=== PATIENT | female | born 1995 | race African-American/Black ===

== ENCOUNTER 2016-09-06 18:20 | Emergency (ER) | payer SELFPAY ==
[2016-09-06 18:52] VITALS: PULSE 80; TEMP 97.4; BMI 41.2
--- NOTE | 2016-09-06 18:52 | PDOC ---
History of Present Illness - History of Present Illness Initial Comments: 09/06/16 19:34 Patient is a 20 year old female with significant medical hx of asthma, PCOS, and gastric bypass surgery (2013) who is presenting to the ED with back pain and RLQ pain for five days. Patient complains of lower back pain that she describes as a tightness and pressure. She reports constant RLQ pain that she rates 8/10 in severity and describes as a "pulling" feeling. The patient also endorses she's been having some diarrhea. Denies any fever, chills, heavy lifting, recent trauma, nausea, vomiting, dysuria, hematuria, chest pain, or shortness of breath. The patient had a D&C in 11/2016; she also reports one miscarriage. /A1/M1 PMD: Jatin Duran MD Metal Technician: Michi Baron MD <Delaney Smith - Last Filed: 09/06/16 19:34> <Trista Pichardo - Last Filed: 09/06/16 22:14> - General Chief Complaint: Pain, Acute Stated Complaint: LOWER ABD PAIN Time Seen by Provider: 09/06/16 18:37 Past History <Delaney Smith - Last Filed: 09/06/16 19:34> - Past Medical History Asthma: Yes - Surgical History Abdominal Surgery: Yes (gastric bypass 02/2014) - Reproductive History (#): 1 Para: 0 Cervical CA: No Dysfunctional Uterine Bleeding: No Ectopic : No Endometrial CA: No Polycystic Ovaries: No Therapeutic (s) & number: No Tubal Ligation: No Spontaneous : 0 - Psycho/Social/Smoking Cessation Hx Anxiety: No Suicidal Ideation: No Smoking History: Never smoked Have you smoked in the past 12 months: No Information on smoking cessation initiated: No Hx Alcohol Use: No Drug/Substance Use Hx: No Substance Use Type: None <Trista Pichardo - Last Filed: 09/06/16 22:14> - Past Medical History Allergies/Adverse Reactions: Allergies Allergy/AdvReac Type Severity Reaction Status Date / Time No Known Allergies Allergy Verified 09/06/16 18:51 Home Medications: Ambulatory Orders Albuterol Sulfate Inhaler - [Ventolin Hfa Inhaler -] 2 inh PO Q4H 11/22/15 Review of Systems - Review of Systems Comments:: 09/06/16 19:47 CONSTITUTIONAL: Absent: fever, chills, diaphoresis, generalized weakness, malaise, loss of appetite HEENT: Absent: rhinorrhea, nasal congestion, throat pain, throat swelling, difficulty swallowing, mouth swelling, ear pain, eye pain, visual changes CARDIOVASCULAR: Absent: chest pain, syncope, palpitations, irregular heart rate, lightheadedness , peripheral edema RESPIRATORY: Absent: cough, shortness of breath, dyspnea with exertion, orthopnea, wheezing, stridor, hemoptysis GASTROINTESTINAL: Present: RLQ pain Absent: abdominal distension, nausea, vomiting, diarrhea, constipation, melena, hematochezia GENITOURINARY: Absent: dysuria, frequency, urgency, hesitancy, hematuria, flank pain, genital pain MUSCULOSKELETAL: Present: back pain Absent: myalgia, arthralgia, joint swelling SKIN: Absent: rash, itching, pallor HEMATOLOGIC/IMMUNOLOGIC: Absent: easy bleeding, easy bruising, lymphadenopathy, frequent infections ENDOCRINE: Absent: unexplained weight gain, unexplained weight loss, heat intolerance, cold intolerance NEUROLOGIC: Absent: headache, focal weakness or paresthesia, dizziness, unsteady gait, seizure, mental status changes, bladder or bowel incontinence. PSYCHIATRIC: Absent: anxiety, depression, suicidal or homicidal ideation, hallucinations <Delaney Smith - Last Filed: 09/06/16 19:34> *Physical Exam - Vital Signs Last Vital Signs Temp Pulse Resp BP Pulse Ox 97.4 F L 80 18 140/90 100 09/06/16 18:30 09/06/16 18:30 09/06/16 18:30 09/06/16 18:30 09/06/16 18:30 - Physical Exam Comments: 09/06/16 19:50 GENERAL: Obese. Awake and alert. No acute distress. HEENT: Normocephalic, atraumatic. PERRLA, EOMI. No conjunctival pallor. Sclera are non- icteric. Moist mucous membranes. Oropharynx is clear. NECK: Supple. Full ROM. No JVD. Carotid pulses 2+ and symmetric, without bruits. No thyromegaly. No lymphadenopathy. CARDIOVASCULAR: Regular rate and rhythm. No murmurs, rubs, or gallops. Distal pulses are 2+ and symmetric. PULMONARY: No evidence of respiratory distress. Lungs clear to auscultation bilaterally. No wheezing, rales or rhonchi. ABDOMINAL: Soft. Right pelvic tenderness. Non-distended. No rebound or guarding. No organomegaly. Normoactive bowel sounds. MUSCULOSKELETAL: Lumbar tenderness. Normal range of motion at all joints. No bony deformities. No CVA tenderness. EXTREMITIES: No cyanosis. No clubbing. No edema. No calf tenderness. SKIN: Warm and dry. Normal capillary refill. No rashes. No jaundice. NEUROLOGICAL: Alert, awake, appropriate. Cranial nerves 2-12 intact. Normal speech. Gait is normal without ataxia. PSYCHIATRIC: Cooperative. Good eye contact. Appropriate mood and affect. <Delaney Smith - Last Filed: 09/06/16 19:34> - Vital Signs Last Vital Signs Temp Pulse Resp BP Pulse Ox 97.4 F L 80 18 140/90 100 09/06/16 18:30 09/06/16 18:30 09/06/16 18:30 09/06/16 18:30 09/06/16 18:30 <Trista Pichardo - Last Filed: 09/06/16 22:14> ED Treatment Course - ADDITIONAL ORDERS Additional order review: Laboratory Results 09/06/16 09/06/16 19:04 19:04 Urine Color Ltyellow Urine Appearance Clear Urine pH 6.0 Ur Specific [place] 1.027 Urine Protein Negative Urine Glucose (UA) Negative Urine Ketones Negative Urine Blood Negative Urine Nitrite Negative Urine Bilirubin Negative Urine Urobilinogen 2.0 e.u/dl H Ur Leukocyte Esterase Trace H Urine HCG, Qual Negative <Delaney Smith - Last Filed: 09/06/16 19:34> - LABORATORY CBC & Chemistry Diagram: 09/06/16 20:00 09/06/16 20:02 <Trista Pichardo - Last Filed: 09/06/16 22:14> *DC/Admit/Observation/Transfer - Attestations Scribe Attestion: 09/06/16 19:51 Documentation prepared by Delaney Smtih, acting as medical advisor for Trista Pichardo MD. <Delaney Smith - Last Filed: 09/06/16 19:34> <Trista Pichardo - Last Filed: 09/06/16 22:14> Diagnosis at time of Disposition: Complex cyst of right ovary - Discharge Dispostion Disposition: HOME Condition at time of disposition: Stable - Referrals Referrals: Jatin Duran MD [Primary Care Provider] - - Patient Instructions Printed Discharge Instructions: DI for Ovarian Cyst Additional Instructions: please follow up with your field service technician poultry
[2016-09-06 19:25] LABS: URINE APPEARANCE CLEAR; URINE BILIRUBIN NEGATIVE (NEGATIVE); URINE BLOOD NEGATIVE (NEGATIVE); URINE COLOR LTYELLOW; URINE GLUCOSE (UA) NEGATIVE (NEGATIVE); URINE KETONE NEGATIVE (NEGATIVE); URINE NITRITE NEGATIVE (NEGATIVE); URINE PROTEIN NEGATIVE (NEGATIVE); URINE UROBILINOGEN 2.0 E.U/dl E.U./dl (0.2-1.0)
[2016-09-06 19:27] LABS: URINE LEUK ESTERASE TRACE (NEGATIVE)
[2016-09-06 19:45] LABS: URINE BACTERIA RARE /hpf (NONE SEEN); URINE MUCUS RARE; URINE RBC 1 /hpf (0-3); URINE WBC 5 /hpf (3-5)
[2016-09-06] MEDS ORDERED: KETOROLAC TROMETHAMINE 30 MG/1 ML VIAL ONE (19:54)
[2016-09-06] MEDS ORDERED: KETOROLAC TROMETHAMINE 30 MG/1 ML VIAL IVPUSH ONE (20:00)
[2016-09-06 20:08] LABS: BASOPHIL 0.9 % (0-2.0); MCH 27.4 pg (25.7-33.7); MCHC 33.6 g/dl (32.0-36.0); MEAN CELL VOLUME 81.6 fl (80-96); MEAN PLT VOLUME 7.1 fl (7.5-11.1); NEUTROPHILS 54.4 % (42.8-82.8); PLATELET COUNT 269 K/MM3 (134-434); RDW 12.8 % (11.6-15.6); WHITE BLOOD COUNT 8.8 K/mm3 (4.0-10.0)
[2016-09-06 20:45] LABS: ALBUMIN 3.5 g/dl (3.4-5.0); ANION GAP 7 (8-16); CALCIUM 8.3 mg/dL (8.5-10.1); CO2 26 mmol/L (21-32); CREATININE 0.6 mg/dL (0.55-1.02); GLUCOSE,RANDOM 75 mg/dL (74-106); SGOT/AST 17 U/L (15-37); SGPT/ALT 26 U/L (12-78)
[2016-09-06 20:47] LABS: ALK PHOS 93 U/L (45-117); BILIRUBIN,TOTAL 0.2 mg/dL (0.2-1.0); TOT PROT 7.6 g/dl (6.4-8.2)
[2016-09-06 22:16] VITALS: BP 128/78
== END 2016-09-06 22:16 | disposition home or self-care (01) ==
LOC: JER 18:20
PROC: 3E0333Z Introduction of Anti-inflammatory into Peripheral Vein, Percutaneous Approach (ICD-10-PCS; principal; 2016-09-06)
DX: N83.291 Other ovarian cyst, right side (principal); E28.2 Polycystic ovarian syndrome; J45.909 Unspecified asthma, uncomplicated; Z98.84 Bariatric surgery status
CPT/HCPCS: 36415; 76830-TC; 80053; 81003; 81015; 84703; 85025; 99283-25

== ENCOUNTER 2016-09-16 20:35 | Emergency (ER) | payer SELFPAY ==
[2016-09-16 20:42] VITALS: TEMP 101.6; BMI 40.7
[2016-09-16] MEDS ORDERED: IBUPROFEN 400 MG TABLET (FP) PO ONE ×2 (21:12→21:13)
--- NOTE | 2016-09-16 21:12 | PDOC ---
History of Present Illness - General Chief Complaint: Pain Stated Complaint: BODY PAIN Time Seen by Provider: 09/16/16 20:45 History Source: Patient Exam Limitations: No Limitations - History of Present Illness Timing/Duration: 4-6 hours Severity: mild Associated Symptoms: reports: cough, fever/chills, shortness of breath. denies : chest pain, loss of appetite, nausea/vomiting, syncope, weakness Past History - Travel Traveled outside of the country in the last 30 days: No Close contact w/someone who was outside of country & ill: No - Past Medical History Allergies/Adverse Reactions: Allergies Allergy/AdvReac Type Severity Reaction Status Date / Time ibuprofen [From Motrin] AdvReac Verified 09/16/16 22:58 Home Medications: Ambulatory Orders Albuterol Sulfate Inhaler - [Ventolin Hfa Inhaler -] 2 inh PO Q4H 11/22/15 Asthma: Yes - Surgical History Abdominal Surgery: Yes (gastric bypass 02/2014) - Reproductive History (#): 1 Para: 0 Cervical CA: No Dysfunctional Uterine Bleeding: No Ectopic : No Endometrial CA: No Polycystic Ovaries: No Therapeutic (s) & number: No Tubal Ligation: No Spontaneous : 0 - Psycho/Social/Smoking Cessation Hx Anxiety: No Suicidal Ideation: No Smoking History: Never smoked Have you smoked in the past 12 months: No Hx Alcohol Use: No Drug/Substance Use Hx: No Substance Use Type: None Review of Systems - Review of Systems Able to Perform ROS?: Yes Comments:: 09/16/16 21:54 CONSTITUTIONAL: +fever, chills Absent: diaphoresis, generalized weakness, malaise, loss of appetite HEENT: Absent: rhinorrhea, nasal congestion, throat pain, throat swelling, difficulty swallowing, mouth swelling, ear pain, eye pain, visual Changes CARDIOVASCULAR: Absent: chest pain, loss of consciousness, palpitations, irregular heart rate, peripheral edema RESPIRATORY: +shortness of breath, cough Absent: dyspnea with exertion, orthopnea, wheezing, stridor, hemoptysis GASTROINTESTINAL: Absent: abdominal pain, abdominal distension, nausea, vomiting, diarrhea, constipation, melena, hematochezia GENITOURINARY: Absent: dysuria, frequency, urgency, hesitancy, hematuria, flank pain, genital pain MUSCULOSKELETAL: Absent: myalgia, arthralgia, joint swelling SKIN: Absent: rash, itching, pallor HEMATOLOGIC/IMMUNOLOGIC: Absent: easy bleeding, easy bruising, lymphadenopathy, frequent infections ENDOCRINE: Absent: unexplained weight gain, unexplained weight loss, heat intolerance, cold intolerance NEUROLOGIC: Absent: headache, focal weakness or paresthesias, dizziness, unsteady gait, seizure, mental status changes, bladder or bowel incontinence PSYCHIATRIC: Absent: anxiety, depression, suicidal or homicidal ideation, hallucinations. 09/16/16 21:55 Is the patient limited French proficient: No *Physical Exam - Vital Signs Last Vital Signs Temp Pulse Resp BP Pulse Ox 101.6 F H 117 H 20 113/41 94 L 09/16/16 20:40 09/16/16 20:40 09/16/16 20:40 09/16/16 20:40 09/16/16 20:40 - Physical Exam Comments: 09/16/16 21:55 GENERAL: Well developed, well nourished. Awake and alert. No acute distress. HEENT: Normocephalic, atraumatic. PERRLA, EOMI. No conjunctival pallor. Sclera are non- icteric. Moist mucous membranes. Oropharynx is clear. NECK: Supple. Full ROM. No JVD. Carotid pulses 2+ and symmetric, without bruits. No thyromegaly. No lymphadenopathy. CARDIOVASCULAR: Regular rate and rhythm. No murmurs, rubs, or gallops. Distal pulses are 2+ and symmetric. PULMONARY: +diffuse exp wheezing No evidence of respiratory distress. No wheezing, rales or rhonchi. ABDOMINAL: Soft. Non-tender. Non-distended. No rebound or guarding. No organomegaly. Normoactive bowel sounds. MUSCULOSKELETAL Normal range of motion at all joints. No bony deformities or tenderness. No CVA tenderness. EXTREMITIES: No cyanosis. No clubbing. No edema. No calf tenderness. SKIN: Warm and dry. Normal capillary refill. No rashes. No jaundice. NEUROLOGICAL: Alert, awake, appropriate. Cranial nerves 2-12 intact. No deficits to light touch and temperature in face, upper extremities and lower extremities. No motor deficits in the in face, upper extremities and lower extremities. Normoreflexic in the upper and lower extremities. Normal speech. Toes are down- going bilaterally. Gait is normal without ataxia. PSYCHIATRIC: Cooperative. Good eye contact. Appropriate mood and affect. ED Treatment Course - LABORATORY CBC & Chemistry Diagram: 09/16/16 21:33 09/16/16 21:33 - RADIOLOGY Radiograph Interpretation: 09/17/16 00:18 CXR 2v NAD *DC/Admit/Observation/Transfer Diagnosis at time of Disposition: Fever Qualifiers: Fever type: unspecified Qualified Code(s): R50.9 - Fever, unspecified Asthma Qualifiers: Asthma severity: mild intermittent Asthma complication type: uncomplicated Qualified Code(s): J45.20 - Mild intermittent asthma, uncomplicated - Discharge Dispostion Disposition: HOME Condition at time of disposition: Stable - Referrals Referrals: Jatin Duran MD [Primary Care Provider] - - Patient Instructions Printed Discharge Instructions: DI for Fever (Symptom) -- Adult, Asthma -- Adult Additional Instructions: Increase fluids Rest Follow-up with your primary medical physician Tylenol alternating with Motrin for fever Return back to the emergency department for severe/persistent or worsening symptoms. Progress Note - Progress Note Progress Note: 20-year-old female W/Pmhx of asthma presents to the emergency department with her complaining of subjective fever and chills, malaise, shortness of breath 5 hours. Patient denies any headache, dizziness, lightheadedness, visual disturbance, neck pain, chest pain, abdominal pains, urinary symptoms. Patient states she was never admitted no wish she ever intubated due to asthma. 2301hrs: Lung sounds: Clear throughout lung morel/auscultation Patient says she feels 99.9% better and wishes to be discharged. Patient's states she will watch her this evening and will return back to the emergency department for any recurrent symptoms.
[2016-09-16] MEDS ORDERED: ALBUTEROL SO4 2.5/IPRATROPIUM 0.5 INH SOL 3 ML VIAL.NEB. NEB ONE ×2 (21:13→21:31)
[2016-09-16] MEDS ORDERED: SODIUM CHLORIDE 1,000 ML IV STA (21:13)
[2016-09-16] MEDS ORDERED: methylPREDNISolone NA SUCC 125 MG/2 ML VIAL ONE (21:13)
[2016-09-16] MEDS ORDERED: ACETAMINOPHEN 500 MG TABLET (FP) PO ONE (21:32)
[2016-09-16] MEDS ORDERED: ACETAMINOPHEN 325 MG TABLET (FP) ONE (21:35)
[2016-09-16] MEDS ORDERED: MAGNESIUM SULF 50% (8.12 MEQ/2 ML-1 GM VIAL) IVPB ONE (21:46)
[2016-09-16] MEDS ORDERED: MAGNESIUM SULF 50% (8.12 MEQ/2 ML-1 GM VIAL) ONE (21:47)
--- NOTE | 2016-09-16 21:47 | PDOC ---
[id number] 113/41 94 L 09/16/16 20:40 09/16/16 20:40 09/16/16 20:40 09/16/16 20:40 09/16/16 20:40 ED Treatment Course - LABORATORY CBC & Chemistry Diagram: 09/16/16 21:33 09/16/16 21:33 - ADDITIONAL ORDERS Additional order review: 09/16/16 20:45 Influenza Types A,B Antigen (RICCI) - Final Nasopharyngeal Swab - Final - Medications Given in the ED: ED Medications Discontinued Medications Generic Name Dose Route Start Last Admin Trade Name Emily PRN Reason Stop Dose Admin Acetaminophen 975 mg 09/16/16 21:32 09/16/16 21:41 Tylenol - PO 09/16/16 21:33 975 mg ONCE ONE Administration Albuterol/Ipratropium 1 amp 09/16/16 21:31 09/16/16 21:40 Duoneb - NEB 09/16/16 21:32 1 amp ONCE ONE Administration Ibuprofen 800 mg 09/16/16 21:12 09/16/16 21:41 Motrin - PO 09/16/16 21:13 Not Given ONCE ONE Medical Decision Making - Medical Decision Making 09/16/16 21:47 agree with care from JIAN Sweet. *DC/Admit/Observation/Transfer Diagnosis at time of Disposition: Fever, Asthma - Discharge Dispostion Disposition: HOME Condition at time of disposition: Stable - Referrals Referrals: Jatin Duran MD [Primary Care Provider] - - Patient Instructions Printed Discharge Instructions: Asthma -- Adult, DI for Fever (Symptom) -- Adult Additional Instructions: Increase fluids Rest Follow-up with your primary medical physician Tylenol alternating with Motrin for fever Return back to the emergency department for severe/persistent or worsening symptoms.
[2016-09-16 21:52] LABS: BASOPHIL 0.4 % (0-2.0); EOSINOPHIL 0.2 % (0-4.5); MCH 27.1 pg (25.7-33.7); MCHC 33.3 g/dl (32.0-36.0); MEAN CELL VOLUME 81.5 fl (80-96); MEAN PLT VOLUME 7.8 fl (7.5-11.1); NEUTROPHILS 85.2 % (42.8-82.8); PLATELET COUNT 244 K/MM3 (134-434); RDW 12.8 % (11.6-15.6); WHITE BLOOD COUNT 9.4 K/mm3 (4.0-10.0)
[2016-09-16 21:53] VITALS: BP 102/72; PULSE 130
[2016-09-16 22:31] LABS: ALBUMIN 3.5 g/dl (3.4-5.0); ANION GAP 12 (8-16); CALCIUM 8.3 mg/dL (8.5-10.1); CO2 22 mmol/L (21-32); CREATININE 0.8 mg/dL (0.55-1.02); GLUCOSE,RANDOM 101 mg/dL (74-106); SGOT/AST 17 U/L (15-37); SGPT/ALT 20 U/L (12-78)
[2016-09-16 22:33] LABS: ALK PHOS 94 U/L (45-117); BILIRUBIN,TOTAL 0.6 mg/dL (0.2-1.0); TOT PROT 7.8 g/dl (6.4-8.2)
[2016-09-17 00:10] LABS: URINE APPEARANCE CLEAR; URINE BILIRUBIN NEGATIVE (NEGATIVE); URINE COLOR LTYELLOW; URINE GLUCOSE (UA) NEGATIVE (NEGATIVE); URINE KETONE NEGATIVE (NEGATIVE); URINE LEUK ESTERASE NEGATIVE (NEGATIVE); URINE NITRITE NEGATIVE (NEGATIVE); URINE PROTEIN NEGATIVE (NEGATIVE); URINE UROBILINOGEN NEGATIVE E.U./dl (0.2-1.0)
[2016-09-17 00:26] LABS: URINE BLOOD 3+ (NEGATIVE)
[2016-09-17 00:30] LABS: URINE BACTERIA RARE /hpf (NONE SEEN); URINE HYALINE CAST 2 /lpf; URINE MUCUS FEW; URINE RBC 3 /hpf (0-3); URINE WBC 3 /hpf (3-5)
== END 2016-09-17 00:32 | disposition home or self-care (01) ==
LOC: JER 20:35
PROC: 3E0F7GC Introduction of Other Therapeutic Substance into Respiratory Tract, Via Natural or Artificial Opening (ICD-10-PCS; principal; 2016-09-16)
PROC: 3E0337Z Introduction of Electrolytic and Water Balance Substance into Peripheral Vein, Percutaneous Approach (ICD-10-PCS; 2016-09-16)
PROC: 3E033GC Introduction of Other Therapeutic Substance into Peripheral Vein, Percutaneous Approach (ICD-10-PCS; 2016-09-16)
DX: J45.20 Mild intermittent asthma, uncomplicated (principal); R50.81 Fever presenting with conditions classified elsewhere
CPT/HCPCS: 36415; 71020-TC; 80053; 81003; 81015; 84703; 85025; 87804; 99285-25

== ENCOUNTER 2018-08-09 02:13 | Emergency (ER) | payer OTHER ==
--- NOTE | 2018-08-09 03:25 | PDOC ---
Attending Attestation - Resident Resident Name: Marino Fraire - ED Attending Attestation I have performed the following: I have examined & evaluated the patient, The case was reviewed & discussed with the resident, I agree w/resident's findings & plan - HPI HPI: 08/09/18 03:34 22-year-old female complaining of tingling to bilateral upper extremities. There is no associated fever trauma or deformity. She denies rash. 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 Patient incidentally noted she's been a little weaker than usual and has a history of anemia. There is no associated chest pain back pain nausea vomiting fever or urinary symptoms. She denies headache or focal weakness. - Physicial Exam PE: 08/09/18 03:35 Agree with resident's exam - Medical Decision Making 08/09/18 03:35 22-year-old female with bilateral upper extremity weakness with exam consistent with carpal tunnel syndrome Plan for labs to rule out acute anemia and likely discharge home with outpatient follow-up
[2018-08-09 03:36] VITALS: BMI 50.8
--- NOTE | 2018-08-09 03:40 | PDOC ---
History of Present Illness - General Chief Complaint: Lightheaded Stated Complaint: ARM NUMBNESS/DIZZINESS Time Seen by Provider: 08/09/18 03:24 History Source: Patient Exam Limitations: No Limitations - History of Present Illness Initial Comments: 08/09/18 03:35 Patient is a 22F with history of anemia, pcos, gastric bypass surgery here today complaining of three days of weakness and tingling in both hands. Patient states that she became worried today that she was having a stroke because she couldn't hold her baby. Patient also states that she's felt weak lately with pre -syncopal symptoms over the past several weeks. Patient states that she was found to be very anemic after the of her child, but never followed up. Denies fevers, chills, nausea, vomiting, shortness of breath, chest pain, headache. Past History - Past Medical History Allergies/Adverse Reactions: Allergies Allergy/AdvReac Type Severity Reaction Status Date / Time ibuprofen [From Motrin] AdvReac Verified 08/09/18 03:35 Home Medications: Ambulatory Orders Albuterol Sulfate Inhaler - [Ventolin Hfa Inhaler -] 2 inh PO Q4H 11/22/15 Asthma: Yes - Surgical History Abdominal Surgery: Yes (gastric bypass 02/2014) - Reproductive History (#): 1 Para: 0 Cervical CA: No Dysfunctional Uterine Bleeding: No Ectopic : No Endometrial CA: No Polycystic Ovaries: No Therapeutic (s) & number: No Tubal Ligation: No Spontaneous : 0 - Suicide/Smoking/Psychosocial Hx Smoking History: Never smoked Have you smoked in the past 12 months: No Hx Alcohol Use: No Drug/Substance Use Hx: No Substance Use Type: None Review of Systems - Review of Systems Comments:: 08/09/18 03:38 GENERAL/CONSTITUTIONAL: No fever or chills. No weakness. HEAD, EYES, EARS, NOSE AND THROAT: No change in vision. No sore throat. CARDIOVASCULAR: No chest pain or shortness of breath RESPIRATORY: No cough, wheezing, or hemoptysis. GASTROINTESTINAL: No nausea, vomiting, diarrhea or constipation. GENITOURINARY: No dysuria, frequency, or change in urination. MUSCULOSKELETAL: No joint or muscle swelling or pain. No neck or back pain. SKIN: No rash NEUROLOGIC: No headache, vertigo, loss of consciousness, +weakness and tingling sensation in hands ENDOCRINE: No increased thirst. No abnormal weight change HEMATOLOGIC/LYMPHATIC: No anemia, easy bleeding, or history of blood clots. ALLERGIC/IMMUNOLOGIC: No hives or skin allergy. *Physical Exam - Physical Exam Comments: 08/09/18 03:40 GENERAL: Awake, alert, and fully oriented, in no acute distress HEAD: No signs of trauma, normocephalic, atraumatic EYES: PERRLA, EOMI, sclera anicteric, conjunctiva clear ENT: Auricles normal inspection, hearing grossly normal, nares patent, oropharynx clear without exudates. Moist mucosa NECK: Normal ROM, supple, no lymphadenopathy, JVD, or masses LUNGS: No distress, speaks full sentences, clear to auscultation bilaterally HEART: Regular rate and rhythm, normal S1 and S2, no murmurs, rubs or gallops, peripheral pulses normal and equal bilaterally. ABDOMEN: Soft, nontender, normoactive bowel sounds. No guarding, no rebound. No masses EXTREMITIES: Normal inspection, Normal range of motion, no edema. No clubbing or cyanosis. NEUROLOGICAL: Cranial nerves II through XII grossly intact. Normal speech, normal gait, +tinel sign bilaterally SKIN: Warm, Dry, normal turgor, no rashes or lesions noted. ED Treatment Course - LABORATORY CBC & Chemistry Diagram: 08/09/18 03:50 08/09/18 03:50 Medical Decision Making - Medical Decision Making 08/09/18 03:40 Patient is 22F with history of gastric bypass, anemia, pcos here today with tingling to hands and weakness/pre-syncope. Vitals normal and stable. Patient's hand tingling is consistent with carpal tunnel. Given history of anemia, and gastric surgery, will also evaluate for anemia and . 08/09/18 04:43 CBC 8.7. BMP normal. Preg negative. 08/09/18 06:11 Patient complaining of back pain that isn't reproducible, given neuro symptoms will do cta chest to rule out dissection. *DC/Admit/Observation/Transfer Diagnosis at time of Disposition: Carpal tunnel syndrome, bilateral Anemia Qualifiers: Anemia type: unspecified type Qualified Code(s): D64.9 - Anemia, unspecified - Discharge Dispostion Disposition: HOME Condition at time of disposition: Good Decision to Admit order: No - Referrals Referrals: Jatin Duran MD [Primary Care Provider] - - Patient Instructions Printed Discharge Instructions: Anemia, DI for Carpal Tunnel Syndrome Additional Instructions: Please follow up with your primary care doctor regarding your anemia. Please return if you have any new, worsening or concerning symptoms, especially chest pain, shortness of breath and weakness. - Post Discharge Activity
[2018-08-09 04:03] LABS: BASO % 0.7 % (0-2.0); HEMOGLOBIN 8.7 GM/dL (10.7-15.3); LYMPH % 42.8 % (8-40); MCH 21.2 pg (25.7-33.7); MEAN CELL VOLUME 68.3 fl (80-96); MONO % 6.5 % (3.8-10.2); PLATELET COUNT 395 K/MM3 (134-434); RDW 16.6 % (11.6-15.6)
[2018-08-09 04:26] LABS: ANION GAP 6 MMOL/L (8-16); BLOOD UREA NITROGEN 9 mg/dL (7-18); CALCIUM 8.6 mg/dL (8.5-10.1); CHLORIDE 108 mmol/L (98-107); CO2 26 mmol/L (21-32); CREATININE 0.6 mg/dL (0.55-1.3); GLUCOSE,RANDOM 68 mg/dL (74-106); POTASSIUM 4.1 mmol/L (3.5-5.1); SODIUM 140 mmol/L (136-145)
[2018-08-09 07:31] VITALS: BP 100/70; PULSE 64; TEMP 98.4
--- NOTE | 2018-08-09 08:04 | PDOC ---
*Physical Exam - Vital Signs Last Vital Signs Temp Pulse Resp BP Pulse Ox 98.4 F 64 18 100/70 100 08/09/18 07:29 08/09/18 07:29 08/09/18 07:29 08/09/18 07:29 08/09/18 07:29 - Physical Exam Comments: 08/09/18 08:02 Patient endorsed to me by Dr. porter. Patient's a 22-year-old female who presented with bilateral hand and wrist pain/paresthesias as well as nonspecific chest/back discomfort. Patient underwent a CTA of chest which showed no evidence of PE/dissection. Wrist/hand pains likely related to patient' s occupation and may be related to carpal tunnel syndrome. Patient advised to follow-up with PMD for possible referral to a hand specialist. Patient expressed understanding. Will discharge. ED Treatment Course - LABORATORY CBC & Chemistry Diagram: 08/09/18 03:50 08/09/18 03:50 - ADDITIONAL ORDERS Additional order review: Laboratory Results 08/09/18 08/09/18 03:50 03:50 Sodium 140 Potassium 4.1 Chloride 108 H Carbon Dioxide 26 Anion Gap 6 L BUN 9 Creatinine 0.6 Creat Clearance w eGFR > 60 Random Glucose 68 L Calcium 8.6 Serum , Qual Negative 08/09/18 03:50 RBC 4.10 MCV 68.3 L MCHC 31.0 L RDW 16.6 H MPV 7.0 L D Neutrophils % 48.0 D Lymphocytes % 42.8 H D Monocytes % 6.5 Eosinophils % 2.0 D Basophils % 0.7 *DC/Admit/Observation/Transfer Diagnosis at time of Disposition: Carpal tunnel syndrome, bilateral Anemia Qualifiers: Anemia type: unspecified type Qualified Code(s): D64.9 - Anemia, unspecified - Discharge Dispostion Disposition: HOME Condition at time of disposition: Good - Referrals Referrals: Jatin Duran MD [Primary Care Provider] - - Patient Instructions Printed Discharge Instructions: Anemia, DI for Carpal Tunnel Syndrome Additional Instructions: Please follow up with your primary care doctor regarding your anemia. Please return if you have any new, worsening or concerning symptoms, especially chest pain, shortness of breath and weakness. - Post Discharge Activity
[2018-08-09 10:09] LABS: ACANTHOCYTES 1+; ANISOCYTOSIS 2+; MACROCYTOSIS 0; OVALOCYTE 1+; PLATELET ESTIMATE NORMAL; TEAR DROP CELLS 1+
--- NOTE | 2018-08-09 14:56 | EKG ---
Test Reason : Blood Pressure : / mmHG Vent. Rate : 052 BPM Atrial Rate : 052 BPM P-R Int : 182 ms QRS Dur : 086 ms QT Int : 436 ms P-R-T Axes : 023 022 024 degrees QTc Int : 405 ms SINUS BRADYCARDIA WITH SINUS ARRHYTHMIA OTHERWISE NORMAL ECG NO PREVIOUS ECGS AVAILABLE Confirmed by TIP TOBIAS, JEFFERY ([id number]) on 08/09/2018 2:56:32 PM Referred By: Confirmed By:JEFFERY WHELAN MD
== END 2018-08-09 08:15 | disposition home or self-care (01) ==
LOC: JER 02:13
DX: D64.9 Anemia, unspecified (principal); G56.03 Carpal tunnel syndrome, bilateral upper limbs; Z98.84 Bariatric surgery status
CPT/HCPCS: 36415; 71275-TC; 80048; 84703; 85025; 93005; 93010; 99283-25

== ENCOUNTER 2022-10-30 04:58 | Emergency (ER) | payer OTHER ==
[2022-10-30 05:06] VITALS: BP 102/67; PULSE 80; RESP 18; TEMP 97.7; BMI 43.2
[2022-10-30] MEDS ORDERED: ACETAMINOPHEN 500 MG TABLET (FP) PO ONE (05:33)
[2022-10-30] MEDS ORDERED: METHOCARBAMOL 500 MG TABLET PO ONE (05:33)
[2022-10-30] MEDS ORDERED: ACETAMINOPHEN 325 MG TABLET (FP) ONE (05:40)
[2022-10-30] MEDS ORDERED: METHOCARBAMOL 500 MG TABLET ONE (05:40)
[2022-10-30 06:52] LABS: EPI CELLS 10 /uL (0-25.1); HYALINE CASTS 1 /uL (0-3.1); URINE APPEARANCE CLEAR; URINE BACTERIA 310 /uL (0-1359); URINE BILIRUBIN NEGATIVE (NEGATIVE); URINE COLOR YELLOW; URINE GLUCOSE (UA) NEGATIVE (NEGATIVE); URINE KETONE TRACE (NEGATIVE); URINE LEUK ESTERASE TRACE (NEGATIVE); URINE NITRITE NEGATIVE (NEGATIVE); URINE PROTEIN TRACE (NEGATIVE); URINE WBC 21 /uL (0-25.8)
[2022-10-30 08:33] LABS: URINE RBC 69.4 /uL (0-23.9)
== END 2022-10-30 06:46 | disposition home or self-care (01) ==
LOC: JER 04:58
DX: M54.2 Cervicalgia (principal); R10.9 Unspecified abdominal pain; V87.7XXA Person injured in collision between other specified motor vehicles (traffic), initial encounter
CPT/HCPCS: 81003; 99283-25

== ENCOUNTER 2023-10-25 20:26 | Emergency (ER) | payer OTHER ==
[2023-10-25 20:40] VITALS: BP 105/58; PULSE 55; RESP 18; TEMP 98; BMI 36.6
[2023-10-25] MEDS ORDERED: ACETAMINOPHEN 500 MG TABLET (FP) ONE (21:45)
[2023-10-25] MEDS: ACETAMINOPHEN 500 MG TABLET (FP) PO ONE (21:47)
== END 2023-10-25 21:47 | disposition home or self-care (01) ==
LOC: JERFT 20:26
DX: M25.522 Pain in left elbow (principal); M79.632 Pain in left forearm; W18.2XXA Fall in (into) shower or empty bathtub, initial encounter
CPT/HCPCS: 73070-TC-LT-FY; 99283-25

== ENCOUNTER 2023-11-08 15:38 | Inpatient (IN) | payer OTHER ==
[2023-11-08] MEDS ORDERED: ALBUTEROL SO4 2.5/IPRATROPIUM 0.5 INH SOL 3 ML VIAL.NEB. NEB ONE (16:11)
[2023-11-08] MEDS ORDERED: EPINEPHrine/PF 1 MG/1 ML (1:1,000) AMPULE ONE (16:42)
[2023-11-08] MEDS ORDERED: DEXAMETHASONE SOD PHOSPHATE 10 MG/1 ML VIAL ONE (16:43)
[2023-11-08] MEDS: EPINEPHrine 1:1,000 1,000 MCG/ML ML SQ ONE (16:47)
[2023-11-08] MEDS: DEXAMETHASONE SOD PHOSPHATE 10 MG/1 ML VIAL IM ONE (16:50)
[2023-11-08] MEDS: methylPREDNISolone NA SUCC 125 MG/2 ML VIAL IVPUSH ONE (16:51)
[2023-11-08] MEDS ORDERED: MAGNESIUM SULFATE IN WATER 2 GM/50 ML IVPB IVPB ONE (16:51)
[2023-11-08] MEDS: DEXAMETHASONE 4 MG TABLET (FP) PO ONE (16:51)
[2023-11-08] MEDS: MAGNESIUM SULFATE IN WATER 2 GM/50 ML IVPB IVPB ONE (16:56)
[2023-11-08] MEDS ORDERED: ACETAMINOPHEN INJECTION 100 ML IVPB ONE ×2 (17:07→20:39)
[2023-11-08] MEDS: ACETAMINOPHEN 1000 MG/100 ML BAG IVPB ONE (17:10)
[2023-11-08 17:12] LABS: BASO % 0.5 % (0-2.0); EOS % 0.4 % (0-4.5); HEMATOCRIT 21.8 % (32.4-45.2); LYMPH % 8.8 % (8-40); MCHC 28.5 g/dl (32.0-36.0); MEAN CELL VOLUME 62.3 fl (80-96); MEAN PLT VOLUME 6.6 fl (7.5-11.1); MONO % 2.7 % (3.8-10.2); NEUT % 87.6 % (42.8-82.8); RDW 21.1 % (11.6-15.6); WHITE BLOOD COUNT 21.9 K/mm3 (4.0-10.0)
[2023-11-08 17:18] LABS: MCH 17.8 pg (25.7-33.7)
[2023-11-08 17:19] LABS: PLATELET COUNT 1547 10^3/uL (134-434)
[2023-11-08 17:20] LABS: HEMOGLOBIN 6.2 GM/dL (10.7-15.3)
[2023-11-08 17:25] LABS: ACTIVATED PTT 28.3 SECONDS (25.2-36.5); INR 1.3 (0.83-1.09); PROTHROMBIN TIME (PATIENT) 14.6 SEC (9.7-13.0)
[2023-11-08 17:30] LABS: POTASSIUM 3.9 mmol/L (3.5-5.1)
[2023-11-08 17:32] LABS: ALBUMIN 3.7 g/dl (3.4-5.0); CALCIUM 9.1 mg/dL (8.5-10.1)
[2023-11-08 17:33] LABS: BLOOD UREA NITROGEN 8.2 mg/dL (7-18)
[2023-11-08 17:36] LABS: CREATININE 0.7 mg/dL (0.55-1.3)
[2023-11-08 17:37] LABS: TOT PROT 8.6 g/dl (6.4-8.2)
[2023-11-08 17:43] LABS: ANISOCYTOSIS 2+; MACROCYTOSIS 0; TARGET CELLS 1+; TEAR DROP CELLS 1+
[2023-11-08 18:30] LABS: MAGNESIUM 2.2 mg/dL (1.8-2.4)
[2023-11-08] MEDS ORDERED: morphine SULFATE 4 MG/ML VIAL ONE (18:58)
[2023-11-08] MEDS: morphine CARPU-JECT 4 MG/1 ML DISP.SYRIN IVPUSH ONE (19:10)
[2023-11-08] MEDS: SODIUM CHLORIDE 0.9% 500 ML INFUS.BAG IV ONE (19:10)
[2023-11-08] MEDS: PIPERACILLIN/TAZOB 4.5 GM 4.5 GM in DEXTROSE 5%-WATER 100 ML IVPB ONE (19:30)
[2023-11-08] MEDS: ACETAMINOPHEN 1000 MG/100 ML BAG IVPB PRN (20:41)
[2023-11-08 21:04] LABS: RETICULOCYTES 1.13 % (0.5-1.5)
[2023-11-08 23:57] VITALS: BMI 38.0
[2023-11-09] MEDS: ALBUTEROL SO4 0.083% IH SOL 2.5 MG/3 ML VIAL.NEB. NEB PRN (01:00)
[2023-11-09] MEDS: PIPERACILLIN/TAZOB 4.5 GM 4.5 GM in DEXTROSE 5%-WATER 100 ML IVPB SCH ×2 (03:39→12:55)
[2023-11-09] MEDS: methylPREDNISolone NA SUCC 40 MG/1 ML VIAL IVPUSH SCH (10:30)
[2023-11-09 12:43] LABS: HEMATOCRIT 25.3 % (32.4-45.2); HEMOGLOBIN 7.6 GM/dL (10.7-15.3); MEAN CELL VOLUME 65.9 fl (80-96); MEAN PLT VOLUME 6.7 fl (7.5-11.1); RBC 3.84 M/mm3 (3.60-5.2); RDW 23.5 % (11.6-15.6)
[2023-11-09 12:44] LABS: MCH 19.8 pg (25.7-33.7)
[2023-11-09 12:45] LABS: PLATELET COUNT 1237 10^3/uL (134-434)
[2023-11-09 13:01] LABS: POTASSIUM 4.6 mmol/L (3.5-5.1)
[2023-11-09 13:02] LABS: CALCIUM 9.4 mg/dL (8.5-10.1)
[2023-11-09 13:05] LABS: PHOSPHOROUS 3.7 mg/dL (2.5-4.9)
[2023-11-09 13:06] LABS: CREATININE 0.6 mg/dL (0.55-1.3)
[2023-11-09 13:19] LABS: ANISOCYTOSIS 3+; MACROCYTOSIS 0
[2023-11-09] MEDS: PIPERACILLIN/TAZOB 3.375 GM 3.375 GM in DEXTROSE 5%-WATER - 50 ML IVPB SCH (17:24)
[2023-11-09] MEDS: BUDESONIDE/FORMETEROL FUMARATE 160/4.5 mcg INHALER IH SCH (21:43)
[2023-11-10 07:33] LABS: HEMATOCRIT 25.5 % (32.4-45.2); HEMOGLOBIN 7.6 GM/dL (10.7-15.3); MCHC 29.8 g/dl (32.0-36.0); MEAN CELL VOLUME 65.9 fl (80-96); MEAN PLT VOLUME 6.8 fl (7.5-11.1); PLATELET COUNT 1099 10^3/uL (134-434); RBC 3.87 M/mm3 (3.60-5.2); RDW 23.3 % (11.6-15.6); WHITE BLOOD COUNT 20.1 K/mm3 (4.0-10.0)
[2023-11-10 07:41] LABS: MCH 19.6 pg (25.7-33.7)
[2023-11-10 07:53] LABS: CALCIUM 8.9 mg/dL (8.5-10.1)
[2023-11-10 07:54] LABS: ALBUMIN 3.1 g/dl (3.4-5.0); BLOOD UREA NITROGEN 16.4 mg/dL (7-18)
[2023-11-10 07:56] LABS: CREATININE 0.6 mg/dL (0.55-1.3)
[2023-11-10 07:58] LABS: BILIRUBIN,TOTAL 0.4 mg/dL (0.2-1); TOT PROT 8.1 g/dl (6.4-8.2)
[2023-11-10 09:25] LABS: ANISOCYTOSIS 3+; MACROCYTOSIS 0
[2023-11-10 09:54] LABS: N-TERMINAL BNP 80.9 pg/ml (5-125)
[2023-11-10] MEDS: guaiFENesin 600 MG TABLET.ER (FP) PO SCH (13:19)
[2023-11-10] MEDS: ALBUTEROL SO4 2.5/IPRATROPIUM 0.5 INH SOL 3 ML VIAL.NEB. NEB SCH (15:15)
[2023-11-10] MEDS: FLUCONAZOLE 150 MG TABLET PO ONE (21:30)
[2023-11-10] MEDS: LORATADINE 10 MG TABLET PO PRN (21:30)
[2023-11-12 07:14] LABS: BASO % 0.2 % (0-2.0); HEMATOCRIT 26.1 % (32.4-45.2); HEMOGLOBIN 7.9 GM/dL (10.7-15.3); LYMPH % 16.1 % (8-40); MCH 20.5 pg (25.7-33.7); MCHC 30.4 g/dl (32.0-36.0); MEAN CELL VOLUME 67.3 fl (80-96); MEAN PLT VOLUME 6.6 fl (7.5-11.1); NEUT % 76.7 % (42.8-82.8); PLATELET COUNT 878 10^3/uL (134-434); RBC 3.88 M/mm3 (3.60-5.2); RDW 24.5 % (11.6-15.6); WHITE BLOOD COUNT 10.7 K/mm3 (4.0-10.0)
[2023-11-12 07:27] LABS: POTASSIUM 4.9 mmol/L (3.5-5.1)
[2023-11-12 07:34] LABS: ALBUMIN 3.1 g/dl (3.4-5.0); BLOOD UREA NITROGEN 21.4 mg/dL (7-18)
[2023-11-12 07:36] LABS: CREATININE 0.7 mg/dL (0.55-1.3)
[2023-11-12 07:38] LABS: BILIRUBIN,TOTAL 0.4 mg/dL (0.2-1)
[2023-11-12 09:49] LABS: ANISOCYTOSIS 0; MACROCYTOSIS 0; OVALOCYTE 1+
[2023-11-12] MEDS: methylPREDNISolone NA SUCC 40 MG/1 ML VIAL IVPUSH SCH (22:05)
[2023-11-13 07:55] LABS: BASO % 0.3 % (0-2.0); HEMATOCRIT 26.5 % (32.4-45.2); HEMOGLOBIN 8.1 GM/dL (10.7-15.3); LYMPH % 18.5 % (8-40); MCH 20.5 pg (25.7-33.7); MCHC 30.6 g/dl (32.0-36.0); MEAN PLT VOLUME 6.6 fl (7.5-11.1); MONO % 9.7 % (3.8-10.2); NEUT % 71.5 % (42.8-82.8); PLATELET COUNT 744 10^3/uL (134-434); RBC 3.95 M/mm3 (3.60-5.2); RDW 25.3 % (11.6-15.6); WHITE BLOOD COUNT 10.5 K/mm3 (4.0-10.0)
[2023-11-13 08:07] LABS: POTASSIUM 4.4 mmol/L (3.5-5.1)
[2023-11-13 08:10] LABS: CALCIUM 8.8 mg/dL (8.5-10.1)
[2023-11-13 08:11] LABS: ALBUMIN 2.8 g/dl (3.4-5.0); BLOOD UREA NITROGEN 18.9 mg/dL (7-18)
[2023-11-13 08:14] LABS: CREATININE 0.7 mg/dL (0.55-1.3)
[2023-11-13 08:16] LABS: BILIRUBIN,TOTAL 0.2 mg/dL (0.2-1); TOT PROT 7.4 g/dl (6.4-8.2)
[2023-11-13] MEDS: CEFPODOXIME PROXETIL 100 MG TABLET PO SCH (17:00)
[2023-11-14] MEDS: POLYETHYLENE GLYCOL (HEALTHYLAX) 3350 17 GM PACKET PO PRN (12:31)
[2023-11-14 15:29] VITALS: BP 116/73; PULSE 90; RESP 16; TEMP 98.4
== END 2023-11-14 17:09 | disposition home or self-care (01) | DRG 141 ==
LOC: JER 15:38 → JERBED 20:00 → J4W 21:48
PROVIDERS: ADMIT Internal Medicine; ATTEND Internal Medicine
DX: J45.901 Unspecified asthma with (acute) exacerbation (principal); J18.9 Pneumonia, unspecified organism; D68.59 Other primary thrombophilia; E87.1 Hypo-osmolality and hyponatremia; D50.9 Iron deficiency anemia, unspecified; E28.2 Polycystic ovarian syndrome; R00.1 Bradycardia, unspecified; D75.839 Thrombocytosis, unspecified; Z98.84 Bariatric surgery status
CPT/HCPCS: 0241U-QW; 36415; 36430; 71045-TC-FY; 71275-TC; 80048; 80053; 80061; 82272; 82728; 83036; 83550; 83615; 83735; 83880; 84100; 84443; 84484; 84702; 85025; 85045; 85610; 85730; 86850; 86870; 86880; 86900; 86901; 86902; 86922; 87040; 93005; 93010; 93225; 93226; 93306-TC; 94010; 94150; 94640; 99291; J0131; J1100; P9058; Q9967

== ENCOUNTER 2023-11-15 21:51 | Emergency (ER) | payer OTHER ==
[2023-11-15 21:56] VITALS: BP 110/69; PULSE 73; RESP 18; TEMP 98.5; BMI 37.9
[2023-11-15 22:59] LABS: EPI CELLS >36 /uL (0-25.1); HYALINE CASTS 4 /uL (0-3.1); PH,URINE 6.5 (5.0-8.0); URINE APPEARANCE CLEAR; URINE BACTERIA 62 /uL (0-1359); URINE BILIRUBIN NEGATIVE (NEGATIVE); URINE COLOR YELLOW; URINE GLUCOSE (UA) NEGATIVE (NEGATIVE); URINE KETONE TRACE (NEGATIVE); URINE LEUK ESTERASE 1+ (NEGATIVE); URINE NITRITE NEGATIVE (NEGATIVE); URINE PROTEIN NEGATIVE (NEGATIVE); URINE RBC 141 /uL (0-23.9); URINE WBC 176 /uL (0-25.8)
[2023-11-15 23:16] LABS: BASO % 0.6 % (0-2.0); EOS % 0.4 % (0-4.5); HEMATOCRIT 29.5 % (32.4-45.2); HEMOGLOBIN 8.9 GM/dL (10.7-15.3); LYMPH % 27.4 % (8-40); MCH 20.2 pg (25.7-33.7); MCHC 30.3 g/dl (32.0-36.0); MEAN CELL VOLUME 66.5 fl (80-96); MEAN PLT VOLUME 6.1 fl (7.5-11.1); MONO % 9.1 % (3.8-10.2); NEUT % 62.5 % (42.8-82.8); PLATELET COUNT 486 10^3/uL (134-434); RBC 4.43 M/mm3 (3.60-5.2); RDW 25.1 % (11.6-15.6); WHITE BLOOD COUNT 12.6 K/mm3 (4.0-10.0)
[2023-11-15 23:41] LABS: ANISOCYTOSIS 2+; OVALOCYTE 1+; PLATELET ESTIMATE ADEQUATE
[2023-11-15 23:52] LABS: POTASSIUM 4.7 mmol/L (3.5-5.1)
[2023-11-15 23:53] LABS: CALCIUM 8.6 mg/dL (8.5-10.1)
[2023-11-15 23:55] LABS: ALBUMIN 3.2 g/dl (3.4-5.0); BLOOD UREA NITROGEN 23.2 mg/dL (7-18)
[2023-11-15 23:58] LABS: CREATININE 0.8 mg/dL (0.55-1.3)
[2023-11-16] LABS: BILIRUBIN,TOTAL 0.3 mg/dL (0.2-1); TOT PROT 8.1 g/dl (6.4-8.2)
== END 2023-11-16 00:24 | disposition home or self-care (01) ==
LOC: JER 21:51
DX: R31.9 Hematuria, unspecified (principal); J18.9 Pneumonia, unspecified organism; J45.901 Unspecified asthma with (acute) exacerbation; R07.9 Chest pain, unspecified; D64.9 Anemia, unspecified; R00.1 Bradycardia, unspecified; D75.839 Thrombocytosis, unspecified
CPT/HCPCS: 36415; 80053; 81003; 84703; 85025; 86850; 86870; 86880; 86900; 86901; 86902; 87086; 99283-25

== ENCOUNTER 2024-01-23 14:40 | Day surgery (SDC) | payer OTHER ==
[2024-01-23] MEDS: FERRIC CARBOXYMALTOSE 750 MG in SODIUM CHLORIDE 250 ML IVPB ONE (15:04)
[2024-01-23 16:05] VITALS: RESP 16; TEMP 98.6
[2024-01-23 16:08] VITALS: BP 103/60; PULSE 49
== END 2024-01-23 16:00 | disposition home or self-care (01) ==
LOC: J7W 14:40 → JONCNONCHE 14:40
PROVIDERS: ATTEND Internal Medicine Hematology & Oncology
PROC: 3E033GC Introduction of Other Therapeutic Substance into Peripheral Vein, Percutaneous Approach (ICD-10-PCS; principal; 2024-01-23)
DX: D50.9 Iron deficiency anemia, unspecified (principal)
CPT/HCPCS: 96365; J1439

== ENCOUNTER 2024-01-31 15:50 | Day surgery (SDC) | payer OTHER ==
[2024-01-31] MEDS: FERRIC CARBOXYMALTOSE 750 MG in SODIUM CHLORIDE 250 ML IVPB ONE ×2 (16:04)
[2024-01-31 16:17] VITALS: RESP 18; TEMP 98.6
[2024-01-31 16:42] VITALS: BP 113/74; PULSE 52
== END 2024-01-31 17:03 | disposition home or self-care (01) ==
LOC: JONCNONCHE 15:50 → J7W 15:50 → JONCNONCHE 17:03
PROVIDERS: ATTEND Internal Medicine Hematology & Oncology
PROC: 3E033GC Introduction of Other Therapeutic Substance into Peripheral Vein, Percutaneous Approach (ICD-10-PCS; principal; 2024-01-31)
DX: D50.9 Iron deficiency anemia, unspecified (principal)
CPT/HCPCS: 96365; J1439